=== PATIENT | male | born 1980 | race Caucasian/White ===

== ENCOUNTER 2018-06-08 15:52 | Emergency (ER) | payer SELFPAY ==
[~2018-06-08] VITALS: Ht 165.1 cm; Wt 68.5 kg
[2018-06-08 15:55] VITALS: BP 174/94; Ht 165.1 cm; Wt 68.5 kg
[2018-06-08 16:48] LABS: BASOPHIL % 0.4 % (0-2); PLATELET COUNT 218 x10^3mcL (130-400)
[2018-06-08 16:56] LABS: CALCIUM 8.8 mg/dL (8.5-10.1); CARBON DIOXIDE 26.3 mmol/L (21-32); CHLORIDE SERUM 102 mmol/L (98-107); GFR1 > 60 mL/min; GLUCOSE SERUM 144 mg/dL (74-106); POTASSIUM SERUM 3.6 mmol/L (3.5-5.1); SODIUM SERUM 137 mmol/L (136-145)
[2018-06-08 17:01] LABS: ALBUMIN 4.2 g/dL (3.4-5.0); ALKALINE PHOSPHATASE 114 U/L (46-116); ALT/SGPT 40 U/L (16-63); AST/SGOT 22 U/L (15-37); BILIRUBIN TOTAL 0.74 mg/dL (0.20-1.00); TOTAL PROTEIN, SERUM 8.5 g/dL (6.4-8.2)
== END 2018-06-08 18:53 | disposition home or self-care (01) ==
LOC: ED 15:52
PROVIDERS: Emergency Medicine
DX: R42 Dizziness and giddiness (principal); M54.2 Cervicalgia; R51 Headache; R11.2 Nausea with vomiting, unspecified
CPT/HCPCS: 36415; J8597; Q0162